=== PATIENT | female | born 1970 | race Asian ===

== ENCOUNTER → 2021-02-16 12:57 | Outpatient (CLI) | payer OTHER, SELFPAY ==
--- NOTE | 2021-02-23 19:33 | PC.NURSE ---
[facility] called, pt in their ed requesting culture result from a week ago.
== END ==
PROVIDERS: Visit Provider Nurse Practitioner Family
DX: N94.89 Other specified conditions associated with female genital organs and menstrual cycle (principal)
CPT/HCPCS: 87070; 87077; 87186; 87205